=== PATIENT | female | born 1940 | race Caucasian/White ===

== ENCOUNTER 2016-06-08 13:09 | Inpatient (IN) | payer OTHER ==
--- NOTE | ~2016-06-08 | DS ---
Discharge Summary [facility] [address] [facility] [place]. [address] NAME: GEOVANY CUELLAR : 38 STATUS : DIS IN PAT#: [id number] AGE: 75 ADM/REG DATE : 06/08/16 MR#: [id number] REPORT SERV DATE: 06/11/16 DICTATED BY: ENA VARGHESE DATE: 06/10/16 REPORT STATUS : Draft TRANSCRIBED BY: MODL DATE: 06/10/16 ADMISSION DATE: 06/08/2016 DISCHARGE DATE: 06/10/2016 DISCHARGE DIAGNOSES: 1. Acute on chronic heart failure, combined. 2. Allergies rhinitis, no evidence of systemic infection. 3. History of severe tricuspid valve regurgitation with history of aortic and mitral valve replacement. 4. Chronic anticoagulation. INR is 2.8 today. HISTORY OF PRESENT ILLNESS: This is a 75-year-old female patient, who came to the hospital with coughing and short of breath. Please see dictated H and P. HOSPITAL COURSE: She was admitted to hospital with heart failure exacerbation. She does have significant rheumatic heart disease with valve replacement history, presented with worsening short of breath with evidence of volume overload. She was admitted to the hospital with heart failure and was treated with IV diuretics and had significant improvement. We took 4700 mL extra fluid out from her system over 48 hours. She is able to ambulate much easier and symptoms are much better. She is not producing any sputum. At the same time, she was found to have symptoms of allergic rhinitis with runny eyes, itching eyes, and nasal congestion, which was treated locally. I explained to her about her current diagnosis and she also had a question about her pending cataract surgery. She was told that she does not have any new medical condition that will interfere with her right cataract surgery, and she did have left cataract surgery without any problem with her current medical condition not too long ago. She was told need to follow up with Dr. Burns little bit earlier than August. Her echocardiogram showed similar finding from 2014; however, the left ventricular function is slightly reduced than that time down to 43%. Dilated right and left atria are not changed and still has a severe tricuspid regurgitation. At this point, her medication for the heart failure was not changed since her EF is still above the 40 and the patient has close followup with Dr. Burns. We are going to follow up with Dr. Burns sooner than August. The patient maximized inpatient benefit, will be discharged to home with continuing her home diuretics, which is Lasix 40 mg twice a day. DISCHARGE MEDICATIONS: Lasix 40 mg twice a day, vitamin D once a day, Cartia XT 120 mg once a day, Flonase two puffs twice a day, Claritin 10 mg once a day, fish oil twice a day, potassium 20 mEq a day, Pravachol 40 mg once a day, Coumadin 5 mg once a day, calcium once a day. Time spent, more than 30 minutes explaining this patient, education, and discharge coordination. Discharge Summary [facility] [id number] [place]. [address] NAME: GEOVANY CUELLAR : 39 STATUS : DIS IN PAT#: [id number] AGE: 75 ADM/REG DATE : 06/08/16 MR#: [id number] REPORT SERV DATE: 06/11/16 DICTATED BY: ENA VARGHESE DATE: 06/10/16 REPORT STATUS : Draft TRANSCRIBED BY: ADIS DATE: 06/10/16 EKBenny/ADIS Ena Varghese M.D. / [id number] CC: Yoan Orr M.D. James Hoback Jr., M.D.
--- NOTE | ~2016-06-08 | HP ---
History And Physical [facility] [id number] [place]. [address] NAME: GEOVANY CUELLAR : 39 STATUS : ADM IN [facility]#: [id number] AGE: 75 ADM/REG DATE : 06/08/16 MR#: [id number] REPORT SERV DATE: 06/09/16 DICTATED BY: ENA VARGHESE DATE: 06/08/16 REPORT STATUS : Draft TRANSCRIBED BY: MODL DATE: 06/08/16 DATE OF ADMISSION: 06/08/2016 CHIEF COMPLAINT: Short of breath. HISTORY OF PRESENT ILLNESS: This is a 75-year-old female patient, who has a childhood rheumatic heart disease with history of aortic valve replacement and mitral valve replacement with the current tricuspid valve regurgitation, came to the hospital with a worsening short of breath for nine days. She is being starting having some allergic rhinitis, the symptoms included with nasal congestion, itchy eyes, and red eyes and cough. She did not take any medications for this allergy symptoms, but she takes some vitamins drink and NyQuil. She started having constant coughing and she feels like getting exhausted with this cough. Therefore, she decided to come to the hospital for the treatment. As I mentioned before, she did have history of aortic valve replacement and mitral valve replacement a long time ago and is followed by Dr. Burns every year. Currently, she is aware of that she had a severe tricuspid regurgitation and pulmonary hypertension. Overall, she does have a chronic both ankle edema and chronic short of breath; however, she is able to walk four blocks a day several times a week without any significant short of breath. However, she was not able to do that for the last couple of days. She also developed orthopnea for the last three days and she has to use three pillows. She did not notice any worsening ankle swelling or other swelling. She does have again chronic swelling around her eyes and ankle all the time. Denies any fever. Denies any chest pain. She denies any nausea or vomiting. She is on a low-sodium diet at home. REVIEW OF SYSTEMS: All 14 systems were reviewed and negative. PAST MEDICAL HISTORY: 1. History of aortic valve replacement and mitral valve replacement with Dr. Tre Salas. 2. Mildly decreased left ventricular function. 3. Severe right heart failure with a pulmonary hypertension due to the rheumatic heart disease. 4. Arthritis. 5. Light CVA in 1988. PAST SURGICAL HISTORY: 1. Tonsillectomy at age 8. 2. Total abdominal hysterectomy in 2011. 3. Left cataract surgery this year, 2017. History And Physical [address] [place]. [address] NAME: GEOVANY CUELLAR : 38 STATUS : ADM IN PAT#: [id number] AGE: 75 ADM/REG DATE : 06/08/16 MR#: [id number] REPORT SERV DATE: 06/09/16 DICTATED BY: ENA VARGHESE DATE: 06/08/16 REPORT STATUS : Draft TRANSCRIBED BY: ADIS DATE: 06/08/16 SOCIAL HISTORY: Lifelong nonsmoker. Denies any alcohol drink. She lives with her . Has healthy three children. She used to work as a nurse at [employer]. FAMILY HISTORY: Diabetes in brother and sisters. ALLERGIES: TO PENICILLIN, VICODIN, SULFA DRUG, AND MORPHINE. HOME MEDICATIONS: 1. Calcium 600 mg twice a day. 2. Vitamin D 1000 units once a day. 3. Cartia ER 120 mg once a day. 4. Lasix 40 mg twice a day. 5. Fish oil 1000 mg twice a day. 6. Potassium 20 mEq once a day. 7. Pravachol 40 mg once at nighttime. 8. Metamucil once a day. 9. NyQuil. 10.Coumadin 5 mg once a day. PHYSICAL EXAMINATION: VITAL SIGNS: Blood pressure is 138/69, pulse is 81, temperature is 98.9, and respiratory rate 22. GENERAL APPEARANCE: She is alert and awake, not in acute distress. Very pleasant female patient. HEENT: She has an injected conjunctivae in both eyes. Has an intact EOM movement. Conjunctivae, not anemic. NECK: I do not hear any carotid bruits. LUNGS: Crackles on both bases. CARDIOVASCULAR: Has a metallic murmur and has irregular heart rate. ABDOMEN: Bowel sounds present. Soft. There is no tenderness or rebound tenderness. EXTREMITIES: Has a prominent varicose vein on both and also has both ankles swelling. LABORATORY DATA: Laboratory showed a sodium of 138, potassium 3.2, BUN 7, and creatinine 0.69. WBC 7.1, hemoglobin 11.7, hematocrit 35.1, INR is 2.6, and platelets 215. BNP was 512.9. STUDIES: 1. Chest x-ray showed cardiomegaly with pulmonary vascular congestion. 2. Electrocardiogram showed atrial fibrillation. ASSESSMENT AND PLAN: 1. Acute on chronic heart failure, prominently right heart failure, but she does have mild History And Physical [address] [address] NAME: GEOVANY CUELLAR : 38 STATUS : ADM IN PAT#: [id number] AGE: 75 ADM/REG DATE : 06/08/16 MR#: [id number] REPORT SERV DATE: 06/09/16 DICTATED BY: ENA VARGHESE DATE: 06/08/16 REPORT STATUS : Draft TRANSCRIBED BY: MODL DATE: 06/08/16 decreased left ventricular dysfunction. 2. Allergy rhinitis and sinusitis. 3. History of rheumatic heart disease with history of aortic valve replacement and mitral regurgitation. 4. Chronic anticoagulation with Coumadin with therapeutic INR. 5. Overall, the patient will be admitted to hospital for more likely two midnights for aggressive diuretic treatment while we are watching the renal function. We will obtain an echocardiogram. Her last echocardiogram was in 2014. 6. Also we will continue to use the rhinitis and sinusitis treatment on this admission. The current plan of care was discussed with the patient and , they voiced understanding. EKL/MODL Ena Varghese M.D. / [id number] CC: Yoan Orr M.D.
[2016-06-08 12:15] LABS: BASOPHILS 0.3 %; BASOPHILS ABSOLUTE 0.02 10/3/uL (0.0-0.16); EOSINOPHILS 2.7 %; EOSINOPHILS ABSOLUTE 0.19 10/3/uL (0.0-0.53); ER CBC TAT 0 Hrs 08 Mins; HEMATOCRIT 35.1 % (36.0-48.0); HEMOGLOBIN 11.7 g/dL (12.0-16.0); IMMATURE GRANULOCYTES 0.1 %; IMMATURE GRANULOCYTES ABSOLUTE 0.01 10/3/uL (0.0-0.11); LYMPHOCYTES ABSOLUTE 0.71 10/3/uL (0.67-4.30); MEAN CORPUS HGB CONC 33.3 g/dL (32.0-36.0); MEAN CORPUSCULAR HEMOGLOB 30.8 pg (26.0-34.0); MEAN CORPUSCULAR VOLUME 92.4 fL (80-100); MEAN PLATELET VOLUME 10.3 fL (9.2-13.0); MONOCYTES ABSOLUTE 0.64 10/3/uL (0.21-1.20); NEUTROPHILS 77.9 %; NEUTROPHILS ABSOLUTE 5.55 10/3/uL (2.02-8.40); PLATELET COUNT 215 10/3/uL (150-400); RBC DISTRIBUTION WIDTH 14.2 % (12.0-16.0); WHITE BLOOD CELLS 7.1 10/3/uL (4.5-10.5)
[2016-06-08 12:16] LABS: MANUAL DIFF NO %
[2016-06-08 12:24] LABS: INFLUENZA A SCREEN NEGATIVE (NEGATIVE); INFLUENZA B SCREEN NEGATIVE (NEGATIVE)
[2016-06-08 12:31] LABS: A/G RATIO 0.8 (0.7-1.9); ALBUMIN 3.2 G/DL (3.5-5.0); CALCIUM, SERUM 8.4 MG/DL (8.5-10.4); CHLORIDE, SERUM 103 MMOL/L (96-112); CO2 (CARBON DIOXIDE) 28 MMOL/L (24-34); CREATININE 0.67 MG/DL (0.55-1.02); GFR AFRICAN AMERICAN 99 ML/MIN (>=60); GFR NON AFRICAN AMERICAN 85 ML/MIN (>=60); GLOBULIN 4.1 G/DL (2.5-4.1); POTASSIUM, SERUM 3.2 MMOL/L (3.5-5.3); SGOT(AST) 33 U/L (5-40); SGPT(ALT) 29 U/L (5-65); SODIUM, SERUM 138 MMOL/L (135-148); TOTAL BILIRUBIN 0.8 MG/DL (0-1.2); TOTAL PROTEIN 7.3 G/DL (6.0-8.5)
[2016-06-08 12:33] LABS: ALKALINE PHOSPHATASE 174 U/L (45-117); BUN (BLOOD UREA NITROGEN) 7 MG/DL (6-23); GLUCOSE, SERUM 103 MG/DL (60-99)
[2016-06-08] MEDS ORDERED: L40 PO (17:22)
[2016-06-08] MEDS ORDERED: CARTIA XT120 MG/24 PO (17:22)
[2016-06-08] MEDS ORDERED: KLOR-CON M2020 MEQ PO (17:23)
[2016-06-08] MEDS ORDERED: VITAMIN D31000 UNIT PO (17:23)
[2016-06-08] MEDS ORDERED: CALTRAT600 PO (17:23)
[2016-06-08] MEDS ORDERED: FISH-EPA1000 MG PO (17:23)
[2016-06-08] MEDS ORDERED: C5 PO (17:24)
[2016-06-08] MEDS ORDERED: PRAVACHOL40 MG PO (17:24)
[2016-06-08] MEDS ORDERED: NYQUIL PO (17:25)
[2016-06-08] MEDS ORDERED: METAMUCIL CAN7 OZ PO (17:25)
[2016-06-08] MEDS ORDERED: REFRESH OPH (17:26)
[2016-06-08 19:52] LABS: INTERNATIONAL NORMAL RATI 4.7 UNITS (-)
[2016-06-08 20:39] LABS: PROTIME (NOT ORD) 44.1 SEC (12.0-14.5)
[2016-06-09 05:19] LABS: BUN (BLOOD UREA NITROGEN) 10 MG/DL (6-23); CALCIUM, SERUM 8.5 MG/DL (8.5-10.4); CHLORIDE, SERUM 105 MMOL/L (96-112); CO2 (CARBON DIOXIDE) 28 MMOL/L (24-34); CREATININE 0.83 MG/DL (0.55-1.02); GFR AFRICAN AMERICAN 79 ML/MIN (>=60); GFR NON AFRICAN AMERICAN 68 ML/MIN (>=60); SODIUM, SERUM 142 MMOL/L (135-148)
[2016-06-09 05:21] LABS: GLUCOSE, SERUM 138 MG/DL (60-99); POTASSIUM, SERUM 3.9 MMOL/L (3.5-5.3)
[2016-06-09 05:26] LABS: INTERNATIONAL NORMAL RATI 4.7 UNITS (-)
[2016-06-09 05:42] LABS: PROTIME (NOT ORD) 43.6 SEC (12.0-14.5)
[2016-06-10 05:31] LABS: BUN (BLOOD UREA NITROGEN) 13 MG/DL (6-23); CALCIUM, SERUM 8.6 MG/DL (8.5-10.4); CHLORIDE, SERUM 104 MMOL/L (96-112); CO2 (CARBON DIOXIDE) 27 MMOL/L (24-34); CREATININE 0.76 MG/DL (0.55-1.02); GFR AFRICAN AMERICAN 88 ML/MIN (>=60); GFR NON AFRICAN AMERICAN 76 ML/MIN (>=60); POTASSIUM, SERUM 3.7 MMOL/L (3.5-5.3); SODIUM, SERUM 142 MMOL/L (135-148)
[2016-06-10 05:32] LABS: GLUCOSE, SERUM 93 MG/DL (60-99)
[2016-06-10 05:33] LABS: INTERNATIONAL NORMAL RATI 2.8 UNITS (-); PROTIME (NOT ORD) 29.5 SEC (12.0-14.5)
[2016-06-10] MEDS ORDERED: CLARIT10 PO (09:19)
[2016-06-10] MEDS ORDERED: FLONASE NAS (09:20)
== END 2016-06-10 11:49 | disposition home or self-care (01) | DRG 293 ==
LOC: ER 13:09 → CDU1 17:16 → 5NO 18:34
PROVIDERS: Internal Medicine; Nurse Practitioner Family
DX: I50.43 Acute on chronic combined systolic (congestive) and diastolic (congestive) heart failure (principal); I27.2 Other secondary pulmonary hypertension; Z95.2 Presence of prosthetic heart valve; J30.9 Allergic rhinitis, unspecified; Z79.01 Long term (current) use of anticoagulants
CPT/HCPCS: 71010; 71250; 80048; 80053; 82962; 83880; 85025; 85610; 87040; 87070; 87205; 87804; 93005; 93306; 94640; 99285; A9270-GY